=== PATIENT | male | born 1955 | race Caucasian/White ===

== ENCOUNTER 2016-11-20 11:34 | Emergency (ER) | payer MEDICARE, OTHER | END 2016-11-20 12:15 | disposition home or self-care (01) | LOC: ER1 11:34 | DX: L53.9 Erythematous condition, unspecified (principal); E11.9 Type 2 diabetes mellitus without complications; I10 Essential (primary) hypertension; J45.909 Unspecified asthma, uncomplicated; F17.210 Nicotine dependence, cigarettes, uncomplicated; Z88.5 Allergy status to narcotic agent | CPT/HCPCS: 99281 ==